=== PATIENT | female | born 1940 | race Caucasian/White ===

== ENCOUNTER 2016-12-22 06:34 | Day surgery (SDC) | payer MEDICARE, OTHER ==
--- NOTE | 2016-12-21 09:32 | NUR ---
NN PT STATES THAT ORIGINALLY DR. MAHONEY OFFICE HAD TALKED TO HER ABOUT STOPPING HER BRIL[place]TA BUT THEN HOSSEIN FROM DR. MAHONEY OFFICE CALLED HER BACK AND TOLD HER NOT TO STOP HER BR[place]TA BECAUSE OF HER INCREASED RISK FOR HEART ATTACK AND THAT FACT THAT SHE HAD JUST HAD 2 IN MARCH OF 2016.
[~2016-12-22] VITALS: Ht 152.4 cm; Wt 66.5 kg
[~2016-12-22 06:34] MED LIST: ASPI81TA2 PO; ATOR20TA59 PO; BETH25TA PO; CA C1TAB81 PO; LEVO25TA51 PO; NITR0.4T PO; ONDA-55 PO; OXYC1TAB11 PO; PANT40TA27 PO; POLY17PO18 PO; TICA90TA PO
[2016-12-22 06:35] VITALS: Ht 152.4 cm; Wt 66.5 kg
--- OUTSIDE RECORDS SUMMARY | 2016-12-22 06:39 | XMS REPORT | Continuity of Care Document ---
Author Author [facility] Organization [facility] Address Unknown Phone Unavailable Allergies Active Description Code Type Severity Reaction Onset Reported/Identified Relationship to Patient Clinical Status Yes phenytoin phenytoin Drug Allergy Moderate HIVES 10/10/2014 Yes codeine codeine Drug Allergy Unknown VOMITING 10/10/2014 Yes orange orange Drug Allergy Severe RASH-HIVES 04/19/2016 Medications Problems Date Dx Coded Attending Type Code Diagnosis Diagnosed By 11/04/2014 Sukhjinder Melchor MD 241.0 NONTOX UNINODULAR GOITER 11/04/2014 Sukhjinder Melchor MD 338.29 OTHER CHRONIC PAIN 11/04/2014 Sukhjinder Melchor MD 389.9 HEARING LOSS NOS 11/04/2014 Sukhjinder Melchor MD 401.9 HYPERTENSION NOS 11/04/2014 Sukhjinder Melchor MD 530.81 ESOPHAGEAL REFLUX 11/04/2014 Sukhjinder Melchor MD 553.3 DIAPHRAGMATIC HERNIA 11/04/2014 Sukhjinder Melchor MD 716.90 ARTHROPATHY NOS-UNSPEC 11/04/2014 Sukhjinder Melchor MD 789.00 ABDOMINAL PAIN, UNSPECIFIED SITE 11/04/2014 Sukhjinder Melchor MD V12.54 PERSONAL HX OF TIA, CEREBRAL INFARCTION W/ OUT RES 11/04/2014 Sukhjinder Melchor MD V15.09 ALLERGY, OTH THAN TO MEDICINAL AGENTS NEC 04/07/2016 Maninder MARTINES, [place] [facility] F E03.9 HYPOTHYROIDISM, UNSPECIFIED 04/07/2016 Maninder MARTINES, [place] H F E11.9 TYPE 2 DIABETES MELLITUS WITHOUT COMPLICATIONS 04/07/2016 Maninder MARTINES, [place] H F E78.5 HYPERLIPIDEMIA, UNSPECIFIED 04/07/2016 Maninder MARTINES, [place] H F E87.6 HYPOKALEMIA 04/07/2016 Maninder MARTINES [place] H F F17.200 NICOTINE DEPENDENCE, UNSPECIFIED, UNCOMPLICATED 04/07/2016 Maninder MARTINES [place] H F I10 ESSENTIAL (PRIMARY) HYPERTENSION 04/07/2016 Magdy Dickens MD I21.29 STEMI INVOLVING OTH SITES 04/07/2016 Magdy Dickens MD J96.01 ACUTE RESPIRATORY FAILURE WITH HYPOXIA 04/07/2016 Magdy Dickens MD R11.0 NAUSEA 04/07/2016 Magdy Dickens MD R57.0 CARDIOGENIC SHOCK Procedures Code Description Performed By Performed On 17.42 LAPAROSCOPIC ROBOTIC ASSISTED PROCEDURE Sukhjinder Melchor MD 11/04/2014 44.67 LAP PROCS FOR CREATION OF ESOPHAGOGASTRIC SPHINCT Sukhjinder Melchor MD 11/04/2014 53.71 LAPAROSCOPIC REPAIR OF DIAPHRAGMATIC HRN, ABDOMINA Sukhjinder Melchor MD 11/04/2014 [id number] DILATION OF 1 COR ART WITH DRUG-ELUT INTRALUM, PER Maninder MARTINES, [facility] 04/07/2016 [id number] MEASURE OF CARDIAC SAMPL PRESSURE, L HEART, PERC Maninder MARTINES [facility] 04/07/2016 [id number] ASSIST WITH CARDIAC OUTPUT USING BALLOON PUMP, CON Maninder MARTINES [facility] 04/07/2016 [id number] FLUOROSCOPY OF MULT COR ART USING L OSM CONTRAST Maninder MARTINES [facility] 04/07/2016 [id number] FLUOROSCOPY OF LEFT HEART USING LOW OSMOLAR CONTRA Maninder MARTINES [facility] 04/07/2016 Results Test Result Range CBC W/DIFF - 07/06/12 15:40 BASOPHIL # 0.1 k/cumm 0.0-0.2 BASOPHIL % 1 % 0-1 EOSINOPHIL # 0.1 k/cumm 0.1-0.5 EOSINOPHIL % 2 % 2-4 GRANULOCYTE # 5.3 k/cumm 2.0-9.0 GRANULOCYTE % 56 % 50-75 LYMPHOCYTE # 3.0 k/cumm 1.0-4.0 LYMPHOCYTE % 31 % 20-30 MEAN CELL HGB 29.7 pg 27.0-33.0 MEAN CELL HGB CONCENTRATION 33.8 g/dl 32.0-36.0 MEAN CELL VOLUME 88.0 fl 80.0-100.0 MONOCYTE # 1.0 k/cumm 0.1-1.0 MONOCYTE % 11 % 4-6 RED BLOOD CELL 5.01 m/cumm 4.00-6.00 RED CELL DISTRIBUTION WIDTH 13.5 % 11.0- 15.6 WHITE BLOOD CELL 9.5 k/cumm 5.0-10.0 HEMOGLOBIN 14.9 gm/dL 12.0-16.0 HEMATOCRIT 44.1 % 37.0-47.0 PLATELET COUNT 300 k/cumm 150-450 PROTHROMBIN TIME WITH INR - 07/06/12 15:40 INTERNATIONAL NORMAL RATIO 0.9 0.9-1.1 PROTHROMBIN TIME 9.3 sec 9.3-12.2 HEPATIC FUNCTION PANEL - 07/06/12 15:40 BILI UNCONJUGATED 0.1 mg/dL 0.0-0.7 AST/SGOT 23 Units/L 10-37 ALT/SGPT 25 Units/L < 66 TOTAL PROTEIN 7.7 gm/dL 6.4-8.2 ALBUMIN 3.4 gm/dL 3.4-5.0 BILI TOTAL 0.2 mg/dL 0.0-1.0 ALKALINE PHOSPHATASE TOTAL 118 Units/L 50 -136 BILI CONJUGATED 0.1 mg/dL 0.0-0.3 [facility] PANEL, [facility] - 07/06/12 15:40 POTASSIUM 4.0 mmol/L 3.5-5.3 EST GFR (MDRD) > 60 mL/min > 59 ANION GAP 11 mmol/L 5-15 EST CrCl (CG) 60 mL/min > 59 GLUCOSE 100 mg/dL 70-99 CALCIUM 8.9 mg/dL 8.5-10.1 BLOOD UREA NITROGEN 9 mg/dL 7-20 CREATININE 0.7 mg/dL 0.6-1.0 SODIUM 138 mmol/L 135-148 CHLORIDE 103 mmol/L 98-110 AST/SGOT 27 Units/L 10-37 ALT/SGPT 27 Units/L < 66 CARBON DIOXIDE 24 mmol/L 21-32 TOTAL PROTEIN 7.6 gm/dL 6.4-8.2 ALBUMIN 3.4 gm/dL 3.4-5.0 BILI TOTAL 0.1 mg/dL 0.0-1.0 ALKALINE PHOSPHATASE TOTAL 120 Units/L 50 -136 HEMOGLOBIN A1C - 07/06/12 15:40 HEMOGLOBIN A1C 6.4 % < 5.7 CHEM/HEM PROFILE-BEDSIDE - 07/06/12 16:08 POTASSIUM 3.9 mmol/L 3.5-5.3 METHOD Bedside ANION GAP 18 mmol/L 10-20 METHOD Bedside GLUCOSE 103 mg/dL 70-99 BLOOD UREA NITROGEN 8 mg/dL 7-20 CREATININE 0.6 mg/dL 0.6-1.0 HEMOGLOBIN 14.6 gm/dL 12.0-16.0 HEMATOCRIT 43.0 % 37.0-47.0 SODIUM 140 mmol/L 135-148 CHLORIDE 104 mmol/L 98-110 CARBON DIOXIDE 23 mmol/L 21-32 CALCIUM IONIZED 4.5 mg/dL 4.5-5.3 URINALYSIS WITH MICROSCOPIC - 07/06/12 16:10 UA LEUKOCYTE ESTERASE DIPSTICK NEGATIVE NEGATIVE UA NITRITE DIPSTICK NEGATIVE NEGATIVE UA PROTEIN DIPSTICK NEGATIVE NEGATIVE UA GLUCOSE DIPSTICK NEGATIVE NEGATIVE UA KETONE DIPSTICK NEGATIVE NEGATIVE UA UROBILINOGEN DIPSTICK NORMAL NORMAL UA BILIRUBIN DIPSTICK NEGATIVE NEGATIVE UA BLOOD DIPSTICK NEGATIVE NEGATIVE UA BACTERIA 2+ NEGATIVE UA EPITHELIAL CELLS 4+ epi/hpf 0 - 1+ UA RBC 0-3 rbc/hpf 0 - 3 UA VOLUME FOR EXAM 12.0 mL (12mL STD) UA WBC 0-1 wbc/hpf 0 - 5 UA SPECIFIC GRAVITY 1.007 1.015-1.025 UR PH 6.0 5.0-7.0 TROPONIN I BEDSIDE - 07/06/12 16:16 METHOD Bedside TROPONIN I < 0.04 ng/mL < 0.11 LIPID PANEL - 07/07/12 06:08 CHOLESTEROL/HDL RATIO 5.0 < 5.0 LDL CHOLESTEROL 93 mg/dL < 100 VLDL CHOLESTEROL 54 mg/dL < 30 TRIGLYCERIDES 270 mg/dL < 150 CHOLESTEROL 184 mg/dL < 200 HDL CHOLESTEROL 37 mg/dL > 39 GLUCOSE (POC) - 07/07/12 10:18 GLUCOSE (POC) 111 mg/dL 70-99 HEMOGLOBIN - 11/02/14 11:43 MEAN CELL VOLUME 72.4 fl 80.0-100.0 HEMOGLOBIN 9.6 gm/dL 12.0-16.0 METABOLIC PANEL, BASIC - 11/02/14 11:43 POTASSIUM 4.0 mmol/L 3.5-5.3 EST GFR (MDRD) > 60 mL/min > 59 ANION GAP 9 mmol/L 5-15 EST CrCl (CG) 46 mL/min > 59 GLUCOSE 105 mg/dL 70-99 CALCIUM 9.1 mg/dL 8.5-10.1 BLOOD UREA NITROGEN 10 mg/dL 7-20 CREATININE 0.9 mg/dL 0.6-1.0 SODIUM 141 mmol/L 135-148 CHLORIDE 105 mmol/L 98-110 CARBON DIOXIDE 27 mmol/L 21-32 GLUCOSE (POC) - 11/02/14 11:44 GLUCOSE (POC) 107 mg/dL 70-99 GLUCOSE (POC) - 11/02/14 14:51 GLUCOSE (POC) 190 mg/dL 70-99 GLUCOSE (POC) - 11/02/14 15:58 GLUCOSE (POC) 178 mg/dL 70-99 GLUCOSE (POC) - 11/02/14 18:57 GLUCOSE (POC) 156 mg/dL -99 GLUCOSE (POC) - 11/02/14 21:54 GLUCOSE (POC) 153 mg/dL -99 GLUCOSE (POC) - 11/02/14 21:56 GLUCOSE (POC) 146 mg/dL -99 GLUCOSE (POC) - 11/03/14 05:18 GLUCOSE (POC) 107 mg/dL 70-99 CBC - 11/03/14 05:45 MEAN CELL HGB 20.9 pg 27.0-33.0 MEAN CELL HGB CONCENTRATION 28.8 g/dL 32.0-37.0 MEAN CELL VOLUME 72.7 fl 80.0-100.0 RED BLOOD CELL 4.25 m/cumm 4.00-6.00 RED CELL DISTRIBUTION WIDTH 18.5 % 11.0- 15.6 WHITE BLOOD CELL 12.2 k/cumm 5.0-10.0 HEMOGLOBIN 8.9 gm/dL 12.0-16.0 HEMATOCRIT 30.9 % 37.0-47.0 PLATELET COUNT 351 k/cumm 150-400 RENAL FUNCTION PANEL - 11/03/14 05:45 POTASSIUM 4.2 mmol/L 3.5-5.3 EST GFR (MDRD) > 60 mL/min > 59 ANION GAP 9 mmol/L 5-15 EST CrCl (CG) 46 mL/min > 59 GLUCOSE 112 mg/dL 70-99 CALCIUM 8.3 mg/dL 8.5-10.1 BLOOD UREA NITROGEN 11 mg/dL 7-20 CREATININE 0.9 mg/dL 0.6-1.0 SODIUM 142 mmol/L 135-148 CHLORIDE 107 mmol/L 98-110 CARBON DIOXIDE 26 mmol/L ALBUMIN 2.8 gm/dL 3.4-5.0 PHOSPHORUS 4.8 mg/dL 2.5-4.9 MAGNESIUM - 11/03/14 05:45 MAGNESIUM 1.8 mg/dL 1.8-2.4 GLUCOSE (POC) - 11/03/14 11:52 GLUCOSE (POC) 93 mg/dL 70-99 GLUCOSE (POC) - 11/03/14 22:33 GLUCOSE (POC) 116 mg/dL 70-99 GLUCOSE (POC) - 11/04/14 05:45 GLUCOSE (POC) 198 mg/dL 70-99 RENAL FUNCTION PANEL - 11/04/14 06:27 POTASSIUM 3.7 mmol/L 3.5-5.3 EST GFR (MDRD) 47 mL/min > 59 ANION GAP 7 mmol/L 02-01 EST CrCl (CG) 36 mL/min > 59 GLUCOSE 150 mg/dL 70-99 CALCIUM 8.1 mg/dL 8.5-10.1 BLOOD UREA NITROGEN 10 mg/dL 7-20 CREATININE 1.2 mg/dL 0.6-1.0 SODIUM 141 mmol/L 135-148 CHLORIDE 107 mmol/L 98-110 CARBON DIOXIDE 27 mmol/L 21-32 ALBUMIN 2.8 gm/dL 3.4-5.0 PHOSPHORUS 3.8 mg/dL 2.5-4.9 MAGNESIUM - 11/04/14 06:27 MAGNESIUM 1.8 mg/dL 1.8-2.4 GLUCOSE (POC) - 11/04/14 20:45 GLUCOSE (POC) 101 mg/dL - GLUCOSE (POC) - 11/05/14 05:21 GLUCOSE (POC) 106 mg/dL 70-99 RENAL FUNCTION PANEL - 11/05/14 05:28 POTASSIUM 3.7 mmol/L 3.5-5.3 EST GFR (MDRD) > 60 mL/min > 59 ANION GAP 7 mmol/L 02-01 EST CrCl (CG) 47 mL/min > 59 GLUCOSE 93 mg/dL 70-99 CALCIUM 7.9 mg/dL 8.5-10.1 BLOOD UREA NITROGEN 8 mg/dL 7-20 CREATININE 0.9 mg/dL 0.6-1.0 SODIUM 138 mmol/L 135-148 CHLORIDE 104 mmol/L 98-110 CARBON DIOXIDE 27 mmol/L 21-32 ALBUMIN 2.8 gm/dL 3.4-5.0 PHOSPHORUS 2.6 mg/dL 2.5-4.9 MAGNESIUM - 11/05/14 05:28 MAGNESIUM 1.5 mg/dL 1.8-2.4 CBC - 11/06/14 05:32 MEAN CELL HGB 21.5 pg 27.0-33.0 MEAN CELL HGB CONCENTRATION 29.0 g/dL 32.0-37.0 MEAN CELL VOLUME 74.3 fl 80.0-100.0 RED BLOOD CELL 3.39 m/cumm 4.00-6.00 RED CELL DISTRIBUTION WIDTH 19.0 % 11.0- 15.6 WHITE BLOOD CELL 5.5 k/cumm 5.0-10.0 HEMOGLOBIN 7.3 gm/dL 12.0-16.0 HEMATOCRIT 25.2 % 37.0-47.0 PLATELET COUNT 220 k/cumm 150-400 RENAL FUNCTION PANEL - 11/06/14 05:32 POTASSIUM 3.6 mmol/L 3.5-5.3 EST GFR (MDRD) > 60 mL/min > 59 ANION GAP 7 mmol/L -15 EST CrCl (CG) > 60 mL/min > 59 GLUCOSE 116 mg/dL 70-99 CALCIUM 8.1 mg/dL 8.5-10.1 BLOOD UREA NITROGEN 3 mg/dL 7-20 CREATININE 0.6 mg/dL 0.6-1.0 SODIUM 144 mmol/L 135-148 CHLORIDE 108 mmol/L 98-110 CARBON DIOXIDE 29 mmol/L 21-32 ALBUMIN 2.7 gm/dL 3.4-5.0 PHOSPHORUS 2.9 mg/dL 2.5-4.9 MAGNESIUM - 11/06/14 05:32 MAGNESIUM 1.5 mg/dL 1.8-2.4 HEMOGLOBIN - 11/07/14 05:11 MEAN CELL VOLUME 74.4 fl 80.0-100.0 HEMOGLOBIN 7.9 gm/dL 12.0-16.0 RENAL FUNCTION PANEL - 11/07/14 05:11 POTASSIUM 3.4 mmol/L 3.5-5.3 EST GFR (MDRD) > 60 mL/min > 59 ANION GAP 6 mmol/L -15 EST CrCl (CG) > 60 mL/min > 59 GLUCOSE 98 mg/dL 70-99 CALCIUM 8.3 mg/dL 8.5-10.1 BLOOD UREA NITROGEN 3 mg/dL 7-20 CREATININE 0.7 mg/dL 0.6-1.0 SODIUM 142 mmol/L 135-148 CHLORIDE 104 mmol/L 98-110 CARBON DIOXIDE 32 mmol/L 21-32 ALBUMIN 2.7 gm/dL 3.4-5.0 PHOSPHORUS 3.0 mg/dL 2.5-4.9 MAGNESIUM - 11/07/14 05:11 MAGNESIUM 1.6 mg/dL 1.8-2.4 ARTERIAL BLOOD GAS - 04/08/16 00:16 ABG BASE EXCESS -8.0 meq/L -3.0-3.0 ABG BICARBONATE 18.5 meq/L 23.0-28.0 ABG PCO2 41 mm Hg 34-45 ABG PH 7.27 7.35-7.45 ABG PO2 79 mm Hg 75-100 ABG O2 SATURATION 93 % 93-100 CBC - 04/08/16 05:21 MEAN CELL HGB 29.6 pg 27.0-33.0 MEAN CELL HGB CONCENTRATION 32.8 g/dL 32.0-37.0 MEAN CELL VOLUME 90.4 fl 80.0-100.0 RED BLOOD CELL 4.56 m/cumm 4.00-6.00 RED CELL DISTRIBUTION WIDTH 14.3 % 11.0- 15.6 WHITE BLOOD CELL 16.1 k/cumm 5.0-10.0 HEMOGLOBIN 13.5 gm/dL 12.0-16.0 HEMATOCRIT 41.2 % 37.0-47.0 PLATELET COUNT 239 k/cumm 150-400 METABOLIC PANEL, COMPREHN - 04/08/16 05:21 POTASSIUM 5.4 mmol/L 3.5-5.3 EST GFR (MDRD) 44 mL/min > 59 ANION GAP 10 mmol/L 5-15 EST CrCl (CG) 28 mL/min > 59 GLUCOSE 154 mg/dL 70-99 CALCIUM 8.1 mg/dL 8.5-10.1 BLOOD UREA NITROGEN 22 mg/dL 7-20 CREATININE 1.2 mg/dL 0.6-1.0 SODIUM 142 mmol/L 135-148 CHLORIDE 111 mmol/L 98-110 AST/SGOT 412 Units/L 10-37 ALT/SGPT 84 Units/L < 66 CARBON DIOXIDE 21 mmol/L 21-32 TOTAL PROTEIN 6.3 gm/dL 6.4-8.2 ALBUMIN 2.9 gm/dL 3.4-5.0 BILI TOTAL 0.3 mg/dL 0.0-1.0 ALKALINE PHOSPHATASE TOTAL 74 IU/L 45- 117 CK MB - 04/08/16 05:21 CK MB 435.7 ng/mL < 4.0 LIPID PANEL - 04/08/16 05:21 CHOLESTEROL/HDL RATIO 5.2 < 5.0 LDL CHOLESTEROL 105 mg/dL < 100 VLDL CHOLESTEROL 49 mg/dL < 30 TRIGLYCERIDES 247 mg/dL < 150 CHOLESTEROL 191 mg/dL < 200 HDL CHOLESTEROL 37 mg/dL > 39 TROPONIN I - 04/08/16 05:21 TROPONIN I 141.00 ng/mL < 0.07 CBC - 04/12/16 07:00 MEAN CELL HGB 29.6 pg 27.0-33.0 MEAN CELL HGB CONCENTRATION 32.6 g/dL 32.0-37.0 MEAN CELL VOLUME 90.8 fl 80.0-100.0 RED BLOOD CELL 3.71 m/cumm 4.00-6.00 RED CELL DISTRIBUTION WIDTH 14.2 % 11.0- 15.6 WHITE BLOOD CELL 10.5 k/cumm 5.0-10.0 HEMOGLOBIN 11.0 gm/dL 12.0-16.0 HEMATOCRIT 33.7 % 37.0-47.0 PLATELET COUNT 222 k/cumm 150-400 METABOLIC PANEL, BASIC - 04/13/16 08:00 POTASSIUM 2.8 mmol/L 3.5-5.3 EST GFR (MDRD) > 60 mL/min > 59 ANION GAP 2 mmol/L 5-15 EST CrCl (CG) > 60 mL/min > 59 GLUCOSE 188 mg/dL 70-99 CALCIUM 8.8 mg/dL 8.5-10.1 BLOOD UREA NITROGEN 11 mg/dL 7-20 CREATININE 0.7 mg/dL 0.6-1.0 SODIUM 132 mmol/L 135-148 CHLORIDE 89 mmol/L 98-110 CARBON DIOXIDE 41 mmol/L 21-32 MAGNESIUM - 04/13/16 08:00 MAGNESIUM 2.1 mg/dL 1.8-2.4 METABOLIC PANEL, BASIC - 04/14/16 05:08 POTASSIUM 3.2 mmol/L 3.5-5.3 EST GFR (MDRD) > 60 mL/min > 59 ANION GAP 6 mmol/L 5-15 EST CrCl (CG) 50 mL/min > 59 GLUCOSE 112 mg/dL 70-99 CALCIUM 9.2 mg/dL 8.5-10.1 BLOOD UREA NITROGEN 16 mg/dL 7-20 CREATININE 0.9 mg/dL 0.6-1.0 SODIUM 139 mmol/L 135-148 CHLORIDE 94 mmol/L 98-110 CARBON DIOXIDE 39 mmol/L 21-32 ARTERIAL BLOOD GAS - 04/14/16 05:20 ABG BASE EXCESS 14.6 meq/L -3.0-3.0 ABG BICARBONATE 39.2 meq/L 23.0-28.0 ABG PCO2 49 mm Hg 34-45 ABG PH 7.53 7.35-7.45 ABG PO2 60 mm Hg 75-100 ABG O2 SATURATION 91 % 93-100 CBC - 04/15/16 05:46 MEAN CELL HGB 29.3 pg 27.0-33.0 MEAN CELL HGB CONCENTRATION 32.2 g/dL 32.0-37.0 MEAN CELL VOLUME 90.9 fl 80.0-100.0 RED BLOOD CELL 4.27 m/cumm 4.00-6.00 RED CELL DISTRIBUTION WIDTH 14.5 % 11.0- 15.6 WHITE BLOOD CELL 11.2 k/cumm 5.0-10.0 HEMOGLOBIN 12.5 gm/dL 12.0-16.0 HEMATOCRIT 38.8 % 37.0-47.0 PLATELET COUNT 335 k/cumm 150-400 HEPATIC FUNCTION PANEL - 04/15/16 05:46 BILI UNCONJUGATED 0.5 mg/dL 0.0-0.7 AST/SGOT 39 Units/L 10-37 ALT/SGPT 57 Units/L < 66 TOTAL PROTEIN 6.8 gm/dL 6.4-8.2 ALBUMIN 2.6 gm/dL 3.4-5.0 BILI TOTAL 0.6 mg/dL 0.0-1.0 ALKALINE PHOSPHATASE TOTAL 94 IU/L 45- 117 BILI CONJUGATED 0.1 mg/dL 0.0-0.3 ARTERIAL BLOOD GAS - 04/15/16 06:08 ABG BASE EXCESS 2.8 meq/L -3.0-3.0 ABG BICARBONATE 26.3 meq/L 23.0-28.0 ABG PCO2 37 mm Hg 34-45 ABG PH 7.47 7.35-7.45 ABG PO2 95 mm Hg 75-100 ABG O2 SATURATION 98 % 93-100 CBC - 04/15/16 16:36 MEAN CELL HGB 29.1 pg 27.0-33.0 MEAN CELL HGB CONCENTRATION 31.8 g/dL 32.0-37.0 MEAN CELL VOLUME 91.6 fl 80.0-100.0 RED BLOOD CELL 4.40 m/cumm 4.00-6.00 RED CELL DISTRIBUTION WIDTH 14.7 % 11.0- 15.6 WHITE BLOOD CELL 10.4 k/cumm 5.0-10.0 HEMOGLOBIN 12.8 gm/dL 12.0-16.0 HEMATOCRIT 40.3 % 37.0-47.0 PLATELET COUNT 365 k/cumm 150-400 PROTHROMBIN TIME WITH INR - 04/15/16 16:37 INTERNATIONAL NORMAL RATIO 1.0 0.9-1.1 PROTHROMBIN TIME 11.5 sec 10.0-12.9 PARTIAL THROMBOPLASTIN TIME - 04/15/16 16:37 PARTIAL THROMBOPLASTIN TIME 38 sec 23-39 METABOLIC PANEL, BASIC - 04/15/16 16:37 POTASSIUM 3.6 mmol/L 3.5-5.3 EST GFR (MDRD) 49 mL/min > 59 ANION GAP 10 mmol/L 5-15 EST CrCl (CG) 41 mL/min > 59 GLUCOSE 179 mg/dL 70-99 CALCIUM 9.1 mg/dL 8.5-10.1 BLOOD UREA NITROGEN 20 mg/dL 7-20 CREATININE 1.1 mg/dL 0.6-1.0 SODIUM 137 mmol/L 135-148 CHLORIDE 99 mmol/L 98-110 CARBON DIOXIDE 28 mmol/L 21-32 CBC - 04/16/16 05:13 MEAN CELL HGB 29.2 pg 27.0-33.0 MEAN CELL HGB CONCENTRATION 32.1 g/dL 32.0-37.0 MEAN CELL VOLUME 91.1 fl 80.0-100.0 RED BLOOD CELL 4.04 m/cumm 4.00-6.00 RED CELL DISTRIBUTION WIDTH 14.5 % 11.0- 15.6 WHITE BLOOD CELL 11.2 k/cumm 5.0-10.0 HEMOGLOBIN 11.8 gm/dL 12.0-16.0 HEMATOCRIT 36.8 % 37.0-47.0 PLATELET COUNT 358 k/cumm 150-400 PROTHROMBIN TIME WITH INR - 04/16/16 05:13 INTERNATIONAL NORMAL RATIO 1.0 0.9-1.1 PROTHROMBIN TIME 10.8 sec 10.0-12.9 PARTIAL THROMBOPLASTIN TIME - 04/16/16 05:13 PARTIAL THROMBOPLASTIN TIME 29 sec 23-39 METABOLIC PANEL, COMPREHN - 04/16/16 05:13 POTASSIUM 3.6 mmol/L 3.5-5.3 EST GFR (MDRD) > 60 mL/min > 59 ANION GAP 9 mmol/L 5-15 EST CrCl (CG) 50 mL/min > 59 GLUCOSE 106 mg/dL 70-99 CALCIUM 8.9 mg/dL 8.5-10.1 BLOOD UREA NITROGEN 18 mg/dL 7-20 CREATININE 0.9 mg/dL 0.6-1.0 SODIUM 140 mmol/L 135-148 CHLORIDE 104 mmol/L 98-110 AST/SGOT 25 Units/L 10-37 ALT/SGPT 46 Units/L < 66 CARBON DIOXIDE 27 mmol/L 21-32 TOTAL PROTEIN 6.5 gm/dL 6.4-8.2 ALBUMIN 2.5 gm/dL 3.4-5.0 BILI TOTAL 0.5 mg/dL 0.0-1.0 ALKALINE PHOSPHATASE TOTAL 93 IU/L 45- 117 TROPONIN I - 04/16/16 05:13 TROPONIN I 1.38 ng/mL < 0.07 CBC - 04/17/16 08:30 MEAN CELL HGB 28.9 pg 27.0-33.0 MEAN CELL HGB CONCENTRATION 31.9 g/dL 32.0-37.0 MEAN CELL VOLUME 90.5 fl 80.0-100.0 RED BLOOD CELL 4.40 m/cumm 4.00-6.00 RED CELL DISTRIBUTION WIDTH 14.7 % 11.0- 15.6 WHITE BLOOD CELL 11.8 k/cumm 5.0-10.0 HEMOGLOBIN 12.7 gm/dL 12.0-16.0 HEMATOCRIT 39.8 % 37.0-47.0 PLATELET COUNT 398 k/cumm 150-400 METABOLIC PANEL, BASIC - 04/17/16 08:30 POTASSIUM 3.8 mmol/L 3.5-5.3 EST GFR (MDRD) > 60 mL/min > 59 ANION GAP 8 mmol/L 5-15 EST CrCl (CG) 50 mL/min > 59 GLUCOSE 151 mg/dL 70-99 CALCIUM 8.9 mg/dL 8.5-10.1 BLOOD UREA NITROGEN 17 mg/dL 7-20 CREATININE 0.9 mg/dL 0.6-1.0 SODIUM 140 mmol/L 135-148 CHLORIDE 108 mmol/L 98-110 CARBON DIOXIDE 24 mmol/L 21-32 METABOLIC PANEL, BASIC - 04/18/16 05:37 POTASSIUM 3.8 mmol/L 3.5-5.3 EST GFR (MDRD) > 60 mL/min > 59 ANION GAP 6 mmol/L 5-15 EST CrCl (CG) 50 mL/min > 59 GLUCOSE 98 mg/dL 70-99 CALCIUM 8.5 mg/dL 8.5-10.1 BLOOD UREA NITROGEN 20 mg/dL 7-20 CREATININE 0.9 mg/dL 0.6-1.0 SODIUM 138 mmol/L 135-148 CHLORIDE 105 mmol/L 98-110 CARBON DIOXIDE 27 mmol/L 21-32 MAGNESIUM - 04/18/16 05:37 MAGNESIUM 2.0 mg/dL 1.8-2.4 CBC - 04/20/16 05:15 MEAN CELL HGB 28.8 pg 27.0-33.0 MEAN CELL HGB CONCENTRATION 31.9 g/dL 32.0-37.0 MEAN CELL VOLUME 90.3 fl 80.0-100.0 RED BLOOD CELL 4.00 m/cumm 4.00-6.00 RED CELL DISTRIBUTION WIDTH 14.8 % 11.0- 15.6 WHITE BLOOD CELL 10.2 k/cumm 5.0-10.0 HEMOGLOBIN 11.5 gm/dL 12.0-16.0 HEMATOCRIT 36.1 % 37.0-47.0 PLATELET COUNT 415 k/cumm 150-400 Encounters ACCT No. Visit Date/Time Discharge Status Pt. Type Provider Facility Loc./Unit Complaint [id number] 11/13/2013 14:43:00 11/13/2013 23 :59:59 CLS Outpatient [id number] 10/23/2013 15:17:00 10/23/2013 23 :59:59 CLS Outpatient [id number] 10/20/2013 14:41:00 10/20/2013 23 :59:59 CLS Outpatient [id number] 07/18/2013 09:59:00 07/18/2013 23 :59:59 CLS Outpatient
--- OUTSIDE RECORDS SUMMARY | 2016-12-22 06:39 | XMS REPORT ---
Author Author Magdy Dickens Organization [facility] Address [address] [place] [address] Care Team Providers Care Core Stacker Name Role Phone Magdy Dickens Unavailable [phone] PROBLEMS Type Condition ICD9-CM Code BXP25-XL Code Onset Dates Condition Status SNOMED Code Problem Atherosclerotic heart disease of [place] coronary artery without angina pectoris I25.10 Active 370238884161870 Problem Mixed hyperlipidemia E78.2 Active 117393463 Problem Plavix resistance Z78.9 Active Problem Dyslipidemia E78.5 Active 736440408 Problem STEMI (ST elevation myocardial infarction) I21.3 Active 344188345 Problem Cardiomyopathy I42.9 Active 51127072 ALLERGIES Unknown Allergies SOCIAL HISTORY No smoking Hx information available PLAN OF CARE VITAL SIGNS MEDICATIONS Unknown Medications RESULTS No Results PROCEDURES No Known procedures IMMUNIZATIONS No Known Immunizations
--- OUTSIDE RECORDS SUMMARY | 2016-12-22 06:39 | XMS REPORT | Referral Summary ---
Author Author [facility] Organization [facility] Address Unknown Phone Unavailable Care Team Providers Care Crester Name Role Phone Mulugeta Lund Primary Care Physician [phone] Encounter VC Date(s): 06/29/16 - 06/29/16 [facility], [facility] [address], [facility] [address] [place], [place] [address] Discharge Diagnosis: Hot flashes Discharge Diagnosis: Stented coronary artery Discharge Disposition: 01-Home or Self Care Attending Physician: Mikal Lund MD Vital Signs Most recent to 1 oldest [Reference Range]: Blood Pressure 134/70 mmHg [90-140/60-90 mmHg] (06/29/16 1:22 PM) Problem List Condition Effective Dates Status Health Status Informant Abdominal 2008 Active pain(Confirmed)1 Acute Active pain(Confirmed) Hayfever(Confirmed) Active Arthritis(Confirmed) Active At risk for Active injury(Confirmed)2 At risk of pressure Active sore(Confirmed) Basal cell Resolved carcinoma(Confirmed) Bronchitis(Confirmed Active ) CVA (cerebral Active vascular accident)(Confirmed) Communication 2010 Active problem(Confirmed)3 Dehydration(Confirme 2008 Active d)4 Allergy to Active environmental factors(Confirmed) Sun exposure, Active moderate(Confirmed) Hearing Active loss(Confirmed) Hypertension(Confirm Active ed) Prediabetes(Confirme Active d) Head Active trauma(Confirmed) Nausea and 2009 Active vomiting(Confirmed)5 Non-toxic uninodular Active goiter (disorder)(Confirmed ) Numbness - 2012 Active RUE(Confirmed)6 Self -care 04/20/16 Active deficit(Confirmed)7 Skin Resolved cancer(Confirmed)8 Slurred 2011 Active speech(Confirmed)9 Thyroid Active nodule(Confirmed) TIA (transient 2012 Active ischemic attack)(Confirmed)10 Varicella Active zoster(Confirmed) 1Hospitalization 2Problem added automatically by system based on initiation of Risk for Injury Plan of Care 3Hospitalization 4Hospitalization 5Hospitalization 6Hospitalization 7Problem added by Discern Expert 8[facility] 9Hospitalization 10Hospitalization Allergies, Adverse Reactions, Alerts Substance Reaction Severity Status codeine Hives/Skin Rash Active VOMITTING Dilantin Active Oranges Active Medications aspirin 81 mg oral delayed release tablet 81 mg 1 tabs, Oral, Daily, 0 Refill(s) Start Date: 04/23/16 Status: Ordered atorvastatin 20 mg oral tablet 20 mg 1 tabs, Oral, Daily, # 30 tabs, 0 Refill(s) Start Date: 04/23/16 Status: Ordered bethanechol 25 mg oral tablet 25 mg 1 tabs, Oral, QID, # 120 tabs, 0 Refill(s), Pharmacy: [facility], 1 tabs Oral QID Start Date: 05/15/16 Status: Ordered Brilinta (ticagrelor) 90 mg oral tablet 90 mg 1 tabs, Oral, BID, # 60 tabs, 0 Refill(s) Start Date: 04/23/16 Stop Date: 05/23/16 Status: Ordered fluticasone 50 mcg/inh nasal spray 100 mcg 2 sprays, Nasal, Daily, # 1 Each, 0 Refill(s) Start Date: 04/23/16 Stop Date: 04/30/16 Status: Ordered LISINOPRIL TABS 40MG See Instructions, TAKE 1 TABLET DAILY, # 100 tabs, eRx: [facility], TAKE 1 TABLET DAILY Start Date: 05/15/16 Status: Ordered nitroglycerin 0.4 mg sublingual tablet 0.4 mg 1 tabs, SubLingual, q5min, Angina/Chest Pain, If chest pain not relieved in 5 minutes after first dose, seek immediate medical attention, # 100 tabs, 0 Refill(s) Start Date: 04/23/16 Status: Ordered Synthroid 25 mcg (0.025 mg) oral tablet 25 mcg 1 tabs, Oral, Daily, # 30 tabs, 0 Refill(s) Start Date: 04/23/16 Status: Ordered Results Chemistry Most recent to 1 oldest [Reference Range]: TSH with Reflex Free 3.19 T4 [0.35-4.94] (06/29/16 2:22 PM) Immunizations Vaccine Date Refusal Reason influenza virus vaccine, inactivated 06/29/16 influenza virus vaccine, live 06/27/13 influenza virus vaccine, live 06/08/11 pneumococcal 13-valent conjugate vaccine 06/29/16 pneumococcal 23-polyvalent vaccine 03/17/10 Procedures Procedure Date Related Diagnosis Body Site Calibration of urethra 08/09/15 Cystoscopy 08/09/15 Urethral dilatation - female 08/09/15 Calibration of urethra 05/22/15 Cystoscopy using panendoscope 05/22/15 Urethral dilatation - female 05/22/15 Laparoscopy, surgical, esophagogastric 11/02/14 fundoplasty (eg, Collin, Toupet procedures) EGD 06/25/14 EKG 02/05/14 Procedure-Cystopanedoscopy 07/03/13 Calibration of urethra 2012 Cystopanendoscopy 2012 Urethral dilatation 2012 Colonoscopy 05/06/11 History of back surgery 09/20/08 History of back surgery - lower back with 2009 titanium pin History of - hysterectomy 09/20/74 Tubal ligation 1970 Adenoidectomy 09/20/68 Social History Social History Type Response Smoking Status Former smoker; Type: Cigarettes; Tobacco use per day: 3 per day; Number of years: 52; Stopped at age: 89 1quit Assessment and Plan Extracted from: Title: Office Visit Note Author: Mikal Lund MD Date: 06/29/16 Assessment/Plan 1.Hot flashes I'm not sure what's causing this, but likely related to the myocardial infarct medication she is using to treatall the sequelae. Reassured her regarding this and advised her to try taking some soy protein. We are not able to use medication and that might mitigate this because of her medications for the coronary artery disease. Ordered: influenza virus vaccine, inactivated, 0.5 mL, IntraMuscular, Once, First Dose: 06/29/16 13:56:00 CDT, Stop Date: 06/29/16 13:56:00 CDT pneumococcal 13-valent conjugate vaccine, 0.5 mL, IntraMuscular, Once, First Dose: 06/29/16 14:00:00 CDT, Stop Date: 06/29/16 14:00:00 CDT Office Visit Level 3 Est 29422 2.Stented coronary artery No change. Ordered: influenza virus vaccine, inactivated, 0.5 mL, IntraMuscular, Once, First Dose: 06/29/16 13:56:00 CDT, Stop Date: 06/29/16 13:56:00 CDT pneumococcal 13-valent conjugate vaccine, 0.5 mL, IntraMuscular, Once, First Dose: 06/29/16 14:00:00 CDT, Stop Date: 06/29/16 14:00:00 CDT Office Visit Level 3 Est [id number]
--- OUTSIDE RECORDS SUMMARY | 2016-12-22 06:40 | XMS REPORT | Referral Summary ---
Author Author [facility] Organization [facility] Address Unknown Phone Unavailable Care Team Providers Care Electrical And Instrumentation Mechanic Name Role Phone Mulugeta Lund Primary Care Physician [phone] Encounter VC Date(s): 11/02/16 - 11/02/16 [facility] [address] [place] [address] JAYDEN Ferraro [id number] Discharge Diagnosis: Difficulty urinating Discharge Disposition: 01-Home or Self Care Attending Physician: Robb Soriano MD Admitting Physician: Robb Soriano MD Vital Signs Most recent to 1 oldest [Reference Range]: Blood Pressure 124/84 mmHg [90-140/60-90 mmHg] (11/02/16 2:11 PM) Problem List Condition Effective Dates Status [...] uninodular Active goiter (disorder)(Confirmed ) Numbness - 2011 - 08/28/14 Resolved RUE(Confirmed)6 Self -care 04/20/16 Active deficit(Confirmed)7 Skin Resolved cancer(Confirmed)8 Slurred 2011 - 08/28/14 Resolved speech(Confirmed)9 Thyroid Active nodule(Confirmed) TIA (transient 2011 Active ischemic attack)(Confirmed)10 Varicella Active zoster(Confirmed) 1Hospitalization [...] oral tablet 25 mg 1 tabs, Oral, TID, X 90 days, # 270 tabs, 1 Refill(s), Pharmacy: [facility], 1 tabs Oral TID,x90 days Start Date: 11/02/16 Stop Date: 05/01/17 Status: Ordered bethanechol 25 mg oral tablet See Instructions, TAKE 1 TABLET FOUR TIMES A DAY, # 120 tabs, eRx: [facility], TAKE 1 TABLET FOUR TIMES A DAY Start Date: 07/06/16 Status: Ordered Brilinta (ticagrelor) 90 mg oral tablet 90 mg 1 tabs, Oral, BID, # 60 tabs, 0 Refill(s) Start Date: 04/23/16 Stop Date: 05/23/16 Status: Ordered fluticasone 50 mcg/inh nasal spray 100 mcg 2 sprays, Nasal, Daily, # 1 Each, 0 Refill(s) Start Date: 04/23/16 Stop Date: 04/30/16 Status: Ordered nitroglycerin 0.4 mg sublingual tablet 0.4 mg 1 tabs, SubLingual, q5min, Angina/Chest Pain, If chest pain not relieved in 5 minutes after first dose, seek immediate medical attention, # 100 tabs, 0 Refill(s) Start Date: 04/23/16 Status: Ordered ondansetron 4 mg oral tablet See Instructions, TAKE ONE TABLET BY MOUTH EVERY 8 HOURS NEEDED FOR NAUSEA AND VOMITING, # 30 tabs, 2 Refill(s), eRx: [facility] #[id number], TAKE ONE TABLET BY MOUTH EVERY 8 HOURS NEEDED FOR NAUSEA AND VOMITING Start Date: 10/15/16 Status: Ordered Percocet 7.5/325 oral tablet 1 tabs, Oral, QID, # 60 tabs, 0 Refill(s) Start Date: 11/02/16 Status: Ordered Synthroid 25 mcg (0.025 mg) oral tablet 25 mcg 1 tabs, Oral, Daily, # 30 tabs, 0 Refill(s) Start Date: 04/23/16 Status: Ordered Results No data available for this section Immunizations Given and Recorded Vaccine Date Status Refusal Reason influenza virus vaccine, inactivated 06/29/16 Given influenza virus vaccine, live 06/27/13 Given influenza virus vaccine, live 06/08/11 Given pneumococcal 13-valent conjugate vaccine 06/29/16 Given pneumococcal 23-polyvalent vaccine 03/17/10 Recorded Procedures Procedure Date Related Diagnosis Body Site Calibration of urethra 08/09/15 Cystoscopy 08/09/15 Urethral dilatation - female 08/09/15 Calibration of urethra 05/22/15 Cystoscopy using panendoscope 05/22/15 Urethral dilatation - female 05/22/15 Laparoscopy, surgical, esophagogastric 11/02/14 fundoplasty (eg, Collin, Toupet procedures) EGD 06/25/14 EKG 02/05/14 Procedure-Cystopanedoscopy 07/03/13 Calibration of urethra 2012 Cystopanendoscopy 2012 Urethral dilatation 2012 Colonoscopy 05/06/11 EGD 05/06/11 snare removal polyp sigmoid colon 05/06/11 History of back surgery 09/20/08 History of back surgery - lower back with 2009 titanium pin History of - hysterectomy 09/20/74 Tubal ligation 1971 Adenoidectomy 09/20/68 Social History Social History Type Response Smoking Status Former smoker; Type: Cigarettes; Tobacco use per day: 3 per day; Number of years: 52; Stopped at age: 89 1quit Assessment and Plan Extracted from: Title: Office Visit Note Author: Robb Soriano MD Date: 11/02/16 Assessment/Plan Difficulty urinating Refill Urecholine Continue with double voiding. I also advised her to use fingers in the vagina to lift the bladder up when she urinates. I will see urinary symptoms could be multifactorialcontributed byurethrostenosis, cystoceleand a weak detrusor. At this point we'll hold off on doing any urethral dilationand will let her recover from her back injury . We'll see her back in 6 months at which time I'll do a urethral dilation.
--- OUTSIDE RECORDS SUMMARY | 2016-12-22 06:40 | XMS REPORT ---
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
--- OUTSIDE RECORDS SUMMARY | 2016-12-22 06:40 | XMS REPORT | Continuity of Care Document ---
Author Author [facility] Organization [facility] Address Unknown Phone Unavailable Support Name Relationship Address Phone OSCAR RODRIGUEZ MD Caregiver [address] [place] [address] Unavailable OSCAR RODRIGUEZ MD Caregiver [address] [place] [address] Unavailable JAKUB LUND Caregiver [address] [place] [address] Unavailable MARYAM PALOMINO Next Of Kin [address] [place], [place] [id number] Insurance Providers Guarantor Odalis Oswald Address [address] [place] [address] Email [email or web address] Medicare Policy Number [id number] Subscriber's Name Odalis Oswald Relationship 18 Self Effective Date 07 Payer [facility] Medicare [facility] Policy Number [id number] Subscriber's Name Nicolás Oswald Relationship 01 Spouse Advance Directives Directive Response Recorded Date/Time Ordered Resuscitation Status Full Code 08/29/16 12:12pm DPOA for Healthcare Only Y Maryam Devine [place] 08/29/16 12:50pm Living Will Y standard living will, doesn't want to be a vegetable 08/29/16 11:44am Problems Active Problems Medical Problem Onset Date Status Acute bleeding Unknown Acute Allergic rhinitis Unknown Chronic Anemia Unknown Acute Cervical stenosis of spine Unknown Acute Compression fracture Unknown Acute Constipation Unknown Chronic Coronary artery disease Unknown Chronic Dehydration Unknown Resolved Fall from standing Unknown Acute Fibromyalgia Unknown Chronic Gait instability Unknown Acute Gastric ulcer with hemorrhage Unknown Acute HFrEF (heart failure with reduced ejection fraction) Unknown Chronic Hx of skin malignancy Unknown Resolved Hypertension Unknown Chronic Hypothyroidism Unknown Chronic Hypoxia Unknown Acute Left arm pain Unknown Acute Low back pain Unknown Acute Nausea & vomiting Unknown Acute OA (osteoarthritis) Unknown Chronic Plavix resistance Unknown Chronic Right flank pain Unknown Acute Syncope Unknown Acute Urethra cancer Unknown Chronic Past Problems Medical Problem Onset Date Compression fracture of L2 Unknown Compression fx, lumbar spine Unknown Medications Current Home Medications Medication Dose Units Route Directions Days Qty Instructions Start Date Acetaminophen (Tylenol Extra Strength) 500 Mg Tablet 500 Mg Oral Every 6 Hours as needed for Pain 30 Tablet 08/27/16 Aspirin 81 Mg Tab.chew 81 Mg Oral Daily 08/23/16 Atorvastatin Calcium 20 Mg Tablet 20 Mg Oral Daily 08/23/16 Bethanechol Chloride (Urecholine) 25 Mg Tablet 25 Mg Oral Four Times Daily 02/28/16 Ca Cmb No.1/Vit D3/B-6/Fa/B12 (Vitamin D3 1,000 Unit Tablet) 1 Each Tablet 1, 000 Unit Oral Daily 06/30/13 Cyclobenzaprine Hcl 5 Mg Tablet 1-2 Tab Oral Three Times A Day as needed for Pain &/Or Spasm 20 Tablet MAY CAUSE DROWSINESS OR DIZZINESS 08/23/16 Docusate Sodium (Colace) 100 Mg Capsule 100 Mg Oral Twice A Day 30 Capsule 08/27/16 Gabapentin (Neurontin) 300 Mg Capsule 300 Mg Oral Bedtime for Pain 30 Capsule 08/27/16 Levothyroxine Sodium 25 Mcg Tablet 25 Mcg Oral Before Breakfast 06/30/13 Magnesium Hydroxide (Milk Of Magnesia) 400 Mg/5 Ml Oral.susp 30 Ml Oral Daily as needed for Constipation 1 Bottle 08/27/16 Nitroglycerin (Nitrostat) 0.4 Mg Tablet 0.4 Mg Oral Every 5 Minutes X 3 as needed for Chest Pain 08/24/16 Oxycodone/Acetaminophen (Percocet 7.5-325 Mg Tablet) 7.5-325 Tablet 1-2 Tab Oral Four Times Daily as needed for Pain 50 Tablet 09/03/16 Pantoprazole Sodium 40 Mg Tablet.dr 40 Mg Oral Before Meals Twice A Day 45 Tablet take twice daily for 2 weeks, then once daily 09/03/16 Polyethylene Glycol 3350 (Healthylax) 17 Gm Powd.pack 17 Gm Oral Daily for Constipation 1 08/27/16 Ticagrelor (Brilinta) 90 Mg Tablet 90 Mg Oral Twice A Day Past Home Medications Medication Directions Ordered Status Acetaminophen 500 Mg Tablet, 1000 Mg Oral Every 8 Hours as needed for Pain Discontinued Bisacodyl 10 Mg Supp.rect, 10 Mg Rectally Daily as needed for Constipation Discontinued Celecoxib (Celebrex) 100 Mg Capsule, 02/11/09 Discontinued Estrogens,Conjugated (Premarin) 1.25 Mg Tablet, 02/11/09 Discontinued Lidocaine (Lidoderm) 1 Each Adh..patch, 1 Patch Topically Daily 08/27/16 Discontinued Lisinopril 40 Mg Tablet, 40 Mg Oral Daily 08/09/15 Discontinued Lisinopril 10 Mg Tablet, Daily 02/11/09 Discontinued Oxycodone/Acetaminophen (Percocet 7.5-325 Mg Tablet) 7.5-325 Tablet, 1-2 Tab Oral Every 4 Hours as needed for Pain 08/27/16 Discontinued Tramadol Hcl 50 Mg Tablet, 1-2 Tab Oral Every 6 Hours as needed for Pain 01/03 Discontinued Social History Social History Problem Response Recorded Date/Time Onset Date Status Reason for Hospitalization anemia 09/03/2016 5:02pm Not Applicable Not Applicable Chewing Tobacco Status No 10/09/2013 10:33am Not Applicable Not Applicable Hx Substance Use No 08/24/2016 4:33pm Not Applicable Not Applicable Hx Alcohol Use No 08/24/2016 4:33pm Not Applicable Not Applicable Has the pt used tobacco in the last 12 months No 08/29/2016 11:46am Not Applicable Not Applicable Query Response Start Date Stop Date Smoking Status Former smoker Hospital Discharge Instructions Instructions: Care Instructions: Reason for Hospitalization: anemia I was in the hospital because (patient own words): "Can't figure out why I'm using up this blood" Discharge Diet: cardiac-low fat Discharge Activity: As tolerates and under direction of home health physical therapist Follow Up Appointments: Dr. Lund in 1-2 weeks, Follow-up with Dr. Mcduffie in 4-6 weeks for reassessment of ulcers. Follow-up with Dr. Dickens as previously scheduled. Pending Lab / Results: No Pending Lab Patient Instructions: Resume Brilinta today, continue coated aspirin as before. Home health being set up for physical therapy to help with strengthening and for home safety evaluation. Wound/Incision Care: Not applicable Durable Medical Equipment: Use a walker with ambulating Pain Management/Treatment: Percocet 7.5 one tablet 4 times daily; you can take one additional tablet 4 times daily as needed if pain is not adequately controlled. As pain control improves decreased frequency of pain pills she takes regularly or extend interval between pain medicine and wean yourself off of Percocet. Can use Tylenol in place of Percocet but should not take more than 10 tablets of Percocet + Tylenol daily Expected Signs/Symptoms: Back pain-should improve with time, discomfort will increase with movement. Notify Physician If: Dizziness, black stools, vomiting, passing out or falling During Business Hours:: Please call Dr. Lund's office at After Business Hours:: Please call [phone] and have the gate mortiser operator page the physician. Condition at time of discharge: Good Plan of Care Discharge Date 09/03/16 5:50pm Disposition 01 DISCHARGED HOME, SELF-CARE Prescriptions See Medication Section Care Plan and Goals See Discharge Instructions Section Functional Status Query Response Date Recorded Mobility Status Ambulatory w/assist September 03, 2016 5:02pm Assistive Devices Front Wheeled Walker September 03, 2016 5:02pm Activity Limitations Weakness Fatigue September 03, 2016 5:02pm Feeding Ability Independent September 03, 2016 5:02pm Toileting Ability Independent September 03, 2016 5:02pm Grooming Ability Independent September 03, 2016 5:02pm Dressing Ability Independent September 03, 2016 5:02pm Driving Ability Independent September 03, 2016 5:02pm Housework Ability Independent September 03, 2016 5:02pm Meal Preparation Ability Independent September 03, 2016 5:02pm Stair Climbing Ability Independent September 03, 2016 5:02pm Ability to complete ADL's impeded by No change September 03, 2016 5:02pm Cognitive/Perceptual Impairments Impaired vision September 03, 2016 5:02pm Visual Assistive Devices Glasses With patient September 01, 2016 12:00pm Preferred Method of Learning Reading September 01, 2016 12:00pm Allergies, Adverse Reactions, Alerts Allergen Type Severity Reaction Status Last Updated phenytoin sodium Allergy Unknown HIVES Active 08/29/16 Codeine Allergy Unknown HIVES/SKIN RASH, VOMITTING Active 08/29/16 orange (food color) Allergy Unknown Active 08/29/16 Immunizations Query Response on File Recorded Date/Time Hx Influenza Vaccination Y Jun 2016 08/29/16 11:46am Hx Pneumococcal Vaccination Y Jun 2015 08/29/16 11:46am Hx Tetanus, Diptheria, Pertussis skin intact 02/02/13 11:13am Hx Influenza Vaccination Y Jun 2016 08/29/16 11:46am Hx Tetanus Diptheria Y DOES NOT KNOW 02/02/13 11:13am Hx Tetanus, Diptheria, Pertussis skin intact 02/02/13 11:13am Influenza Vaccine Hx 06/201608/29/16 12:54pm Vital Signs Acute Vital Signs Vital Response Date/Time Temperature (Fahrenheit) 97.2 deg F (96.8 - 99.1) 09/03/2016 11:41am Temperature (Calculated Celsius) 36.61707 degrees C (36.0 - 37.3) 09/03/2016 11:41am Temperature Source Oral 09/01/2016 1:55pm Pulse Rate (adult) 77 bpm (60 - 100) 09/03/2016 11:41am Respiratory Rate 16 breaths/min (10 - 20) 09/03/2016 11:41am O2 Sat by Pulse Oximetry 92 % (90 - 100) 09/03/2016 11:41am Oxygen Delivery Method Nasal Cannula 09/01/2016 11:00pm Oxygen Delivery Method Room Air 09/03/2016 11:41am Oxygen Flow Rate 1.00 L/min 09/02/2016 7:00am Blood Pressure 122/65 mm Hg 09/03/2016 11:41am Blood Pressure Source Automatic Cuff 09/03/2016 11:41am Height (Feet) 5 feet 09/02/2016 1:36pm Height (Inches) 0.00 inches 09/02/2016 1:36pm Weight (Kilograms) 63.800 kg 09/03/2016 8:29am Body Mass Index (BMI) 27.9 08/29/2016 11:43am Results Laboratory Results Test Name Result Units Flags Reference Collection Date/Time Result Date/ Time Comments Urine Collection Type CLEANCATCH-MIDSTREAM 08/26/2016 6:21am 2015 6:32am Urine Color YELLOW YELLOW 08/26/2016 6:21am 08/26/2016 6:32am Urine Turbidity CLEAR CLEAR 08/26/2016 6:21am 08/26/2016 6:32am Urine Specific Stanley 1.025 1.015-1.025 08/26/2016 6:21am 2015 6:32am Urine pH 5.5 5.0-8.0 08/26/2016 6:21am 08/26/2016 6:32am Urine Leukocyte Esterase NEGATIVE NEGATIVE 08/26/2016 6:21am 2015 6:32am Urine Nitrite NEGATIVE NEGATIVE 08/26/2016 6:08/26/2016 6:32am Urine Protein NEGATIVE NEGATIVE 08/26/2016 6:08/26/2016 6:32am Urine Glucose (UA) NEGATIVE NEGATIVE 08/26/2016 6:08/26/2016 6: 32am Urine Ketones NEGATIVE NEGATIVE 08/26/2016 6:08/26/2016 6:32am Urine Urobilinogen 0.2 EU/DL NORMAL 08/26/2016 6:08/26/2016 6: 32am Urine Bilirubin NEGATIVE NEGATIVE 08/26/2016 6:08/26/2016 6: 32am Urine Blood NEGATIVE NEGATIVE 08/26/2016 6:08/26/2016 6:32am Urinalysis Comment MICROSCOPIC NOT IND. 08/26/2016 6:2015 6:32am Neutrophils % (Manual) 56.0 % 33-66 08/29/2016 5:08/29/2016 6: 17am Band Neutrophils % 4.0 % 0-6 08/29/2016 5:08/29/2016 6:17am Lymphocytes % (Manual) 31.0 % 23-45 08/29/2016 5:08/29/2016 6: 17am Monocytes % (Manual) 3.0 % 0-9.0 08/29/2016 5:08/29/2016 6:17am Basophils % (Manual) 1.0 % 0-2 08/29/2016 5:08/29/2016 6:17am Reactive Lymphocytes % 5.0 % H 0-0 08/29/2016 5:08/29/2016 6:17am Band Neutrophils # 0.4 T/MM3 08/29/2016 5:0408/29/2016 6:17am Absolute Neutrophils (Manual) 6.1 T/MM3 1.8-7.7 08/29/2016 5:0408/29 6:17am Lymphocytes # (Manual) 3.4 T/MM3 1-4.8 08/29/2016 5:0408/29/2016 6: 17am Monocytes # (Manual) 0.3 T/MM3 0-0.8 08/29/2016 5:0408/29/2016 6: 17am Basophils # (Manual) 0.1 T/MM3 0-0.2 08/29/2016 5:0408/29/2016 6: 17am Reactive Lymphocytes # 0.5 T/MM3 H 0-0 08/29/2016 5:0408/29/2016 6: 17am Nucleated Red Blood Cells 3 08/29/2016 5:0408/29/2016 6:17am Red Cell Morphology Comment ABNORMAL 08/29/2016 5:0408/29/2016 6 :17am Anisocytosis 1+ 08/29/2016 5:0408/29/2016 6:17am Poikilocytosis 1+ 08/29/2016 5:0408/29/2016 6:17am Hypochromasia 1+ 08/29/2016 5:0408/29/2016 6:17am Iron Level 27 UG/DL L 37-170 08/28/2016 10:18pm 08/31/2016 1:39am Ferritin 25.4 NG/ML 11-264 08/28/2016 10:18pm 08/31/2016 2:19am White Blood Count 7.1 T/MM3 4.5-11.0 09/03/2016 4:2509/03/2016 5: 53am Red Blood Count 4.05 M/MM3 4.00-5.20 09/03/2016 4:2509/03/2016 5: 53am Hemoglobin 10.8 GM/DL D L 12-16 09/03/2016 4:2509/03/2016 5:53am Hematocrit 35.0 % D L 36-46 09/03/2016 4:2509/03/2016 5:53am Mean Corpuscular Volume 86.4 UM3 80-100 09/03/2016 4:2509/03/2016 5: 53am Mean Corpuscular Hemoglobin 26.7 UUG 26-34 09/03/2016 4:252015 5:53am Mean Corpuscular Hemoglobin Concent 30.9 GM/DL L 31-37 09/03/2016 4:2509/03/2016 5:53am RDW Standard Deviation 50.9 FL H 36.9-50.2 09/03/2016 4:2509/03/2016 5:53am Platelet Count 307 T/MM3 130-400 09/03/2016 4:09/03/2016 5:53am Mean Platelet Volume 10.7 UM3 9.4-12.4 09/03/2016 4:09/03/2016 5: 53am Neutrophils (%) (Auto) 53.9 % 33-66 09/03/2016 4:09/03/2016 5: 53am Lymphocytes (%) (Auto) 31.8 % 23-45 09/03/2016 4:09/03/2016 5: 53am Monocytes (%) (Auto) 10.5 % H 0-9.0 09/03/2016 4:09/03/2016 5:53am Eosinophils (%) (Auto) 3.3 % 0-4 09/03/2016 4:09/03/2016 5:53am Basophils (%) (Auto) 0.4 % 0-2 09/03/2016 4:09/03/2016 5:53am Immature Granulocyte % (Auto) 0.1 % 0.0-0.5 09/03/2016 4:2015 5:53am Absolute Neutrophils (auto) 3.8 T/MM3 1.8-7.7 09/03/2016 4:2015 5:53am Absolute Lymphocytes (auto) 2.3 T/MM3 1-4.8 09/03/2016 4:2015 5:53am Absolute Monocytes (auto) 0.7 T/MM3 0-0.8 09/03/2016 4:09/03/2016 5:53am Absolute Eosinophils (auto) 0.2 T/MM3 0-0.5 09/03/2016 4:2015 5:53am Absolute Basophils (auto) 0.0 T/MM3 0-0.2 09/03/2016 4:09/03/2016 5:53am Absolute Immature Granulocyte (auto 0.01 T/MM3 0.00-0.03 09/03/2016 4: 09/03/2016 5:53am Prothromb Time International Ratio 1.04 0.76-1.04 09/01/2016 4:3609/01/2016 5:08am THERAPUTIC RANGE=2.00-3.00 FOR ANTI-THROMBOSIS THERAPUTIC RANGE=2.50-3.50 FOR IMPLANTED VALVE Icterus Index < 2 0-7 09/03/2016 4:2509/03/2016 5:57am Chemistry Specimen Hemolysis < 15 0-25 09/03/2016 4:2509/03/2016 5 :57am 0-25: Specimen Exhibited No Hemolysis. Turbidity < 20 0-20 09/03/2016 4:2509/03/2016 5:57am Sodium Level 143 MEQ/L 134-144 09/03/2016 4:2509/03/2016 5:57am Potassium Level 3.3 MEQ/L L 3.6-5 09/03/2016 4:2509/03/2016 5:57am Chloride Level 103 MEQ/L 98-107 09/03/2016 4:2509/03/2016 5:57am Carbon Dioxide Level 28 MEQ/L 22-30 09/03/2016 4:2509/03/2016 5: 57am Anion Gap 12 MEQ/L 5-15 09/03/2016 4:2509/03/2016 5:57am Blood Urea Nitrogen 8.0 MG/DL D 7-17 09/03/2016 4:2509/03/2016 6:01am Creatinine 0.7 MG/DL 0.7-1.2 09/03/2016 4:2509/03/2016 5:57am BUN/Creatinine Ratio 11 RATIO 6-26 09/03/2016 4:2509/03/2016 5:57am Glomerular Filtration Rate Calc 82 09/03/2016 4:2509/03/2016 5: 57am Glucose Level 120 MG/DL H 65-110 09/03/2016 4:25am 09/03/2016 5:57am Calculated Osmolality 274 MOSM/KG 261-280 09/03/2016 4:2509/03/2016 5:57am Calcium Level 8.7 MG/DL 8.4-10.2 09/03/2016 4:25am 09/03/2016 5:57am Phosphorus Level 3.6 MG/DL 2.5-4.5 09/01/2016 4:36am 09/01/2016 6:22am Total Bilirubin 0.50 MG/DL 0.20-1.30 09/02/2016 4:09/02/2016 5: 39am Alkaline Phosphatase 87 U/L 38-126 09/02/2016 4:09/02/2016 5:39am Total Protein 5.5 G/DL L 6.3-8.2 09/02/2016 4:09/02/2016 5:39am Albumin 2.8 G/DL L 3.5-5.0 09/02/2016 4:09/02/2016 5:39am Globulin 2.7 G/DL 2.4-3.6 09/02/2016 4:09/02/2016 5:39am Albumin/Globulin Ratio 1.0 RATIO L 1.1-2.2 09/02/2016 4:09/02/2016 5:39am Aspartate Amino Transf (AST/SGOT) 21 U/L 14-36 09/02/2016 4:2015 5:39am Alanine Aminotransferase (ALT/SGPT) 45 U/L 9-52 09/02/2016 4:09/02 5:39am Troponin I 0.066 ng/ml 0-0.12 08/30/2016 5:08/30/2016 5:51am Troponin values with a difference of 55% increase from orginal troponin value represent a true biological DELTA value. (%increase Calc=Orginal Troponin value, divided by subsequent Troponin value, multiplied by 100) CR-Vkz-X-Type Natriuretic Peptide 8190 PG/ML H 0-175 09/03/2016 4:09/03/2016 6:02am Rule in cut points: <50 years old=450; 50-75 years old=900; >75 years old=1800; When utilizing ProBNP rule-in cut points, adjustment for impaired renal function is typically not required. Magnesium Level 2.1 MG/DL 1.6-2.3 09/03/2016 4:09/03/2016 5:57am Stool Occult Blood POSITIVE A 08/29/2016 5:49pm 08/29/2016 5:56pm Name: ODALIS OSWALD Unit #: [id number] : 1940 Sex: F Admit Date: 08/29/16 Loc / Svc: SRG Discharge Date: DIAGNOSTIC IMAGING REPORT Report #: [id number] [facility] JAYDEN Taylor EXAM: LUMBAR SPINE 2-3 VIEWS LOCATION OF DICTATION: [facility] HISTORY: ITS.REASON: compression fx, pain COMPARISON: No prior studies available for comparison. TECHNIQUE: FINDINGS: There is an age indeterminate compression deformity involving the superior endplate of L2 vertebra with approximately 25% loss of vertebral body height. Consider MRI to further evaluate the chronicity of this fracture. There is preservation of lumbar lordosis. Posterior spinal fixation with pedicle screws at the L5-S1 level. Mild spondylosis of the lumbar spine is demonstrated. There is [id number] calcific atherosclerotic disease of the thoracic aorta. IMPRESSION: 1. Age indeterminant compression deformity involving the superior endplate of L2 vertebra. MRI could be utilized to further evaluate the chronicity of this fracture. 2. Mild spondylosis with posterior spinal fixation at the L5-S1 level. There is no evidence for significant malalignment. . Procedures Procedure Status Date Provider(s) Esophagogastroduodenoscopy (EGD) with closed biopsy Completed 09/01/16 FOSTER MCDUFFIE MD Encounters Encounter Location Arrival/Admit Date Discharge/Depart Date Attending Provider Discharged Inpatient [facility] 08/29/16 11:10am 09/03/16 5:50pm OSCAR RODRIGUEZ MD Discharged Inpatient [facility] 08/27/16 2:50pm 08/29/16 11:00am KIM LOMELI MD Discharged Inpatient [facility] 08/26/16 12:41pm 08/27/16 2:50pm MARILUZ SWAN MD Departed Emergency Room [facility] 08/23/16 7:12am 08/23/16 11: 05am KELLEY STEWART MD
--- OUTSIDE RECORDS SUMMARY | 2016-12-22 06:41 | XMS REPORT | Referral Summary ---
Author Author [facility] Organization [facility] Address Unknown Phone Unavailable Care Team Providers Care Warehouse Incentive Selector Name Role Phone Mulugeta Lund Primary Care Physician [phone] Encounter VC Date(s): 09/09/16 - 09/09/16 [facility] [address], [facility] [address] [place], [place] [address] Discharge Diagnosis: Compression fracture of L2 Discharge Diagnosis: Hypertension Discharge Disposition: 01-Home or Self Care Attending Physician: Mikal Lund MD Vital Signs Most recent to 1 oldest [Reference Range]: Blood Pressure 150/84 mmHg [90-140/60-90 mmHg] *HI* (09/09/16 3:12 PM) Problem List Condition Effective Dates Status [...] Resolved speech(Confirmed)9 Thyroid Active nodule(Confirmed) TIA (transient 2012 [...] TIMES A DAY, # 120 tabs, eRx: [facility], TAKE 1 TABLET FOUR TIMES [...] Visit Note Author: Mikal Lund MD Date: 09/09/16 Assessment/Plan 1.Compression fracture of L2 No change. Continue to use the pain meds as tolerated and then see as needed 2.Hypertension Will not restart medication but will follow in about 3months.
--- OUTSIDE RECORDS SUMMARY | 2016-12-22 06:41 | XMS REPORT | Referral Summary ---
Author Author [facility] Organization [facility] Address Unknown Phone Unavailable Care Team Providers Care Electronics Department Manager Name Role Phone Mulugeta Lund Primary Care Physician [phone] Encounter VC Date(s): 08/17/16 - 08/17/16 [facility] [address] [place] [address] JAY[place] Ferraro [id number]- Discharge Diagnosis: Urethral stenosis Discharge Disposition: 01-Home or Self Care Attending Physician: Robb Soriano MD Admitting Physician: Robb Soriano MD Referring Physician: Mikal Lund MD Vital Signs Most recent to 1 oldest [Reference Range]: Peripheral Pulse 76 bpm Rate [60-100 bpm] (08/17/16 1:22 PM) Blood Pressure 116/64 mmHg [90-140/60-90 mmHg] (08/17/16 1:22 PM) Problem List Condition Effective Dates Status Health Status Informant Abdominal 2008 Active pain(Confirmed)1 Acute Active pain(Confirmed) Hayfever(Confirmed) Active Arthritis(Confirmed) Active At risk for Active injury(Confirmed)2 At risk of pressure Active sore(Confirmed) Basal cell Resolved carcinoma(Confirmed) Bronchitis(Confirmed Active ) CVA (cerebral Active vascular accident)(Confirmed) Communication 2010 Active problem(Confirmed)3 Dehydration(Confirme 2009 Active d)4 Allergy to Active environmental factors(Confirmed) [...] 1 TABLET DAILY, # 100 tabs, eRx: [facility], TAKE 1 TABLET DAILY Start [...] No data available for this section Immunizations Vaccine Date Refusal Reason influenza virus [...] Visit Note Author: Robb Soriano MD Date: 08/17/16 Assessment/Plan We will schedule her for urethral dilationagain.
--- OUTSIDE RECORDS SUMMARY | 2016-12-22 06:41 | XMS REPORT | Referral Summary ---
Author Author [facility] Organization [facility] Address Unknown Phone Unavailable Care Team Providers Care Head Knitting Machine Fixer Name Role Phone Mulugeta Lund Primary Care Physician [phone] Encounter VC Date(s): 07/13/16 - 07/13/16 [facility] [address] [place] [address] [place] [id number]- Discharge Diagnosis: Incomplete bladder emptying Discharge Disposition: -Home or Self Care Attending Physician: Robb Soriano MD Admitting Physician: Robb Soriano MD Referring Physician: Mikal Lund MD Vital Signs Most recent to 1 oldest [Reference Range]: Peripheral Pulse 68 bpm Rate [60-100 bpm] (07/13/16 10:20 AM) Blood Pressure 112/72 mmHg [90-140/60-90 mmHg] (07/13/16 10:20 AM) Problem List Condition Effective Dates Status Health [...] Visit Note Author: Robb Soriano MD Date: 07/13/16 Assessment/Plan Incomplete bladder emptying Her symptomspoint more towards possible cystocele. She has had a history ofsome mesh repairin 2001for possible cystocele. I advised herto manuallypush the bladderoffduring urination through the vaginaand see if that helps with hersymptomsif it does then she may benefitfrom repair of cystocele. She will come backin a month to let me knowhow she is doing.
--- OUTSIDE RECORDS SUMMARY | 2016-12-22 06:41 | XMS REPORT | Referral Summary ---
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 Discharge Disposition: 01-Home or Self Care Attending Physician: Robb Soriano MD Admitting Physician: Robb Soriano MD Vital Signs Most recent to 1 oldest [Reference Range]: Peripheral Pulse 72 bpm Rate [60-100 bpm] (06/25/16 1:10 PM) Blood Pressure 134/74 mmHg [90-140/60-90 mmHg] (06/25/16 1:10 PM) Problem List Condition Effective Dates Status [...] QID, # 120 tabs, 0 Refill(s), Pharmacy: [facility]IVERY, 1 tabs Oral QID Start [...] 1 TABLET DAILY, # 100 tabs, eRx: [facility], TAKE 1 TABLET DAILY Start [...] Vaccine Date Refusal Reason influenza virus vaccine, live 06/27/13 influenza virus vaccine, live 06/08/11 pneumococcal 23-polyvalent vaccine 03/17/10 Procedures Procedure Date Related Diagnosis Body Site Dilation of female urethra including 06/25/16 suppository and/or instillation; subsequent Calibration of urethra 08/09/15 Cystoscopy 08/09/15 Urethral [...] Visit Note Author: Robb Soriano MD Date: 06/25/16 Assessment/Plan Acquired stenosis of urethral meatus Female urethral dilators were used and the ureter was dilated starting from 12 sized to 26. Patient tolerated the procedure well. Urine was clearwithout any odor. She will follow-up with me in the returnin 3 months
[2016-12-22] MEDS ORDERED: LR 1,000 ML IV SCH (07:00)
[2016-12-22] MEDS ORDERED: LIDOCAINE 1% (10mg/ml) 2ml SDV INJ ONE (07:00)
[2016-12-22 07:08] VITALS: BP 167/77; PULSE 70; RESP 20; TEMP 98.6; O2SAT 94
[2016-12-22 07:19] VITALS: BP 150/70
[2016-12-22] MEDS ORDERED: PROPOFOL 500mg 50 ML IV ONE (08:02)
[2016-12-22] MEDS ORDERED: MIDAZOLAM 2mg/2ml INJECTION ONE (08:03)
[2016-12-22] MEDS ORDERED: ONDANSETRON 4mg/2ml INJECTION ONE (08:03)
--- NOTE | 2016-12-22 08:12 | ANESPREOP ---
Anesthesia Record Date and Time DATE: 12/22/16 TIME: 714 Proposed Surgical Procedure EGD Allergies: Coded Allergies: codeine (Verified Allergy, Unknown, HIVES/SKIN RASH, VOMITTING, 12/22/16) orange (Verified Allergy, Unknown, 12/22/16) ALL ORANGES phenytoin sodium (Verified Allergy, Unknown, HIVES, 12/22/16) Ht/Wt/BMI Height: 5 ' 0.00 " Weight: 66.500 kg BMI: 28.6 kg/m2 Vital Signs Date Time Temp Pulse Resp B/P Pulse Ox O2 Delivery O2 Flow Rate FiO2 12/22/16 07:19 150/70 12/22/16 07:08 98.6 70 20 94 Room Air Medications Inpatient Medications Current Medications Medications (Trade) Dose Ordered Sig/Mindy Start Time Stop Time Status Last Admin Dose Admin Lactated Ringer's (Lactated Ringers) 1,000 ml @ 50 mls/hr Q20H 12/22/16 07:00 12/22/16 07:14 50 MLS/HR Aspirin (Aspirin) 81 Mg Tab.chew, 81 MG PO DAILY, (Reported) Last Taken: on 12/22/16 0600 Atorvastatin Calcium (Atorvastatin Calcium) 20 Mg Tablet, 20 MG PO DAILY, (Reported) Last Taken: on 12/22/16 0600 Bethanechol Chloride (Urecholine) 25 Mg Tablet, 25 MG PO QID, (Reported) Last Taken: on 12/22/16 0600 Ca Cmb No.1/Vit D3/B-6/Fa/B12 (Vitamin D3 1,000 Unit Tablet) 1 Each Tablet, 1,000 UNIT PO DAILY, (Reported) Last Taken: on 12/21/16 0600 Levothyroxine Sodium (Levothyroxine Sodium) 25 Mcg Tablet, 25 MCG PO ACB, (Reported) Last Taken: on 12/22/16 0600 Nitroglycerin (Nitrostat) 0.4 Mg Tablet, 0.4 MG PO Q5MIN PRN for CHEST PAIN, (Reported) Ondansetron HCl (Ondansetron HCl) 4 Mg Tablet, 1 TAB PO Q6H, (Reported) Last Taken: on 12/22/16 0200 Oxycodone HCl/Acetaminophen (Percocet 7.5-325 mg Tablet) 7.5-325 Tablet, 1-2 TAB PO QID PRN for PAIN Last Taken: on 12/21/16 2200 Pantoprazole Sodium (Pantoprazole Sodium) 40 Mg Tablet.dr, 40 MG PO ACBID take twice daily for 2 weeks, then once daily Last Taken: on 12/22/16 0600 Polyethylene Glycol 3350 (Healthylax) 17 Gm Powd.pack, 17 GM PO DAILY Last Taken: on Unknown Date & Time Ticagrelor (Brilinta) 90 Mg Tablet, 90 MG PO BID, (Reported) Last Taken: on 12/22/16 0600 Currently on Beta Dwight: No Medical/Surgical History Anesthesia PMH: Reports: *Angina (APRIL 14, 2016), *Hypertension (NO MEDS), *CT (March & 2015), Anesthesia Reactions (N/V, NO AIRWAY ISSUES KNOWN), Arthritis, CHF, CVA/Stroke/TIA (TIA 2010 & 2011), Hiatal Hernia (NOV 02 2014), Hyperlipidemia, Reflux, Thyroid Disease (GOITER, THROID NODULE PER H&P, PT. DENIES), Denies: *Diabetes, *Dyspnea, Asthma, Blood Transfusion Reac, COPD, Cancer, Clotting Problems, Deep Vein Thrombosis, Glaucoma, Hepatitis, Malignant Hyperthermia, Pacemaker, Renal Disease, Seizures, Sleep Apnea, Tuberculosis Smoking Status: Current every day smoker # of Packs per Day: 0.3 # of Years: 50 Use Chewing Tobacco?: No Substance Use Type: does not use Alcohol Intake: none Last Drink: hours (ago) (8) HX of Last Menstrual Period: HYST. Past Surgical History Orthopedic Surgeries: Yes - BACK FUSION , PINNNING OF LEFT RADIUS Abdominal Surgeries: Yes - appy, hernia Genitourinary Surgeries: No Cardiac Surgeries: Yes - HEART CATH. 2 STENTS PLACED Endocrine Surgeries: No Reproductive Surgeries: Yes - hyst Neurological Surgeries: Yes - MENINGIOMA 1993 Ear Surgeries: No Nose Surgeries: No Throat Surgeries: No Other Surgeries: Yes - COLONOSCOPY, EGD Anesthesia Adverse Reactions: FOUND nausea and vomiting Pertinent Findings EKG Rhythm: Sinus Rhythm Physical Exam Respiratory: Lungs clear Cardiovascular: FOUND Regular rate, rhythm Airway Assessment Mallampati Score: II TMD: 3 Fingerbreadths Neck Extension: Good Teeth: Upper Dentures Overall Assessment: No Airway Concerns ASA: 3 Plan Anesthesia Plan: TIVA Discussion Discussed risks/options/alternatives of anesthesia and questions answered. Patient consents. Nursing pain assessment noted. Present: Spouse Attestation Statement Prior to the delivery of any anesthetic medication, I examined the patient, developed the plan, obtained the patient's consent and discussed the risk and benefits of the procedure with the patient/guardian. ZOEY ALVARADO CRNA Dec 22, 2016 08:12
[2016-12-22] MEDS ORDERED: BENZOCAINE 20% Top. Anesth. SPRAY UD ONE (08:22)
[2016-12-22] MEDS ORDERED: LIDOCAINE VISCOUS 2% Oral Soln 15ml UD ONE (08:22)
[2016-12-22 08:48] VITALS: BP 165/79; PULSE 77; RESP 14; TEMP 97.7; O2SAT 93
--- NOTE | 2016-12-22 08:48 | GSPOSTPROC ---
Immediate Operative Note DATE: 12/22/16 TIME: 08:47 Postop Diagnosis: Personal history of gastric ulcers Surgical Procedure: EGD Surgeon: Yovani ASA: 3 FOSTER MCDUFFIE MD Dec 22, 2016 08:48
--- NOTE | 2016-12-22 08:56 | ANESPO ---
Post-Op Note Date 12/22/16 Time: 08:56 Status Pt Participated in Evaluation: Pt participated in person Vital Signs Date Time Temp Pulse Resp B/P Pulse Ox O2 Delivery O2 Flow Rate FiO2 12/22/16 07:19 150/70 12/22/16 07:08 98.6 70 20 94 Room Air Respiratory Function: Airway patent Cardiovascular Function: Regular pulse Mental Status: Alert/oriented Pain Level Intensity: 0 Hydration: IV infusing Complications during Recovery None apparent Follow-Up Instructions Instructions Per Surgeon ZOEY ALVARADO CRNA Dec 22, 2016 08:56
[2016-12-22 09:05] VITALS: BP 153/84; PULSE 74; RESP 20; O2SAT 92
[2016-12-22 09:20] VITALS: BP 165/79; PULSE 78; RESP 24; O2SAT 95
[2016-12-22 09:34] VITALS: BP 164/87; PULSE 72; RESP 20; O2SAT 95
--- NOTE | 2016-12-22 13:09 | OPNOTEF ---
DATE OF OPERATION 12/22/2016 PREOPERATIVE DIAGNOSES 1. Multiple benign gastric ulcers found at esophagogastroduodenoscopy on 09/01/2016. 2. Status post Collin fundoplication in 2013. POSTOPERATIVE DIAGNOSES 1. Multiple benign gastric ulcers found at esophagogastroduodenoscopy on 09/01/2016. 2. Status post Collin fundoplication in 2013. 3. Healing of previous benign gastric ulcers. OPERATION Esophagogastroduodenoscopy SURGEON Aroldo Pina MD ANESTHESIA TIVA ASA CLASS 3 FINDINGS The mucosa at the esophagus had a normal appearance. No abnormalities were seen at the esophagus. Duodenal mucosa also appeared completely normal. The previous benign gastric ulcers which had been present at esophagogastroduodenoscopy on 09/01/2016 were completely healed today. There were no gastric erosions or gastric ulcers present at esophagogastroduodenoscopy today. The patient did have postoperative changes from the previous Collin fundoplication operation which were visible at esophagogastroduodenoscopy today. DESCRIPTION OF OPERATION The patient was brought to the endoscopy room. The patient was placed on a cart in the endoscopy room. The patient was placed in left lateral recumbent position on the cart. The patient was premedicated with intravenous sedation medication administered by the nurse piecer up. The Olympus upper GI endoscope was used. The upper GI endoscope was introduced into the esophagus. The upper GI endoscope was advanced down through the esophagus and stomach and into the duodenum. The upper GI endoscope was withdrawn from the duodenum back into the stomach. The upper GI endoscope was retroflexed and the gastroesophageal junction was viewed from below. The upper GI endoscope was straightened out. Stomach was examined further. The upper GI endoscope was then withdrawn out through the stomach and esophagus and removed from the patient. Findings throughout procedure were as described above. The patient did continue to receive intravenous sedation medication administered by the nurse piecer up throughout the operation. The patient did tolerate the operation well. AMRITAD
== END 2016-12-22 09:45 | disposition home or self-care (01) ==
LOC: NSC 06:34
PROVIDERS: ATTEND Surgery
DX: Z87.11 Personal history of peptic ulcer disease (principal); Z98.890 Other specified postprocedural states; I25.10 Atherosclerotic heart disease of native coronary artery without angina pectoris; I10 Essential (primary) hypertension; I50.22 Chronic systolic (congestive) heart failure; E03.9 Hypothyroidism, unspecified; M79.7 Fibromyalgia; E78.5 Hyperlipidemia, unspecified; E04.2 Nontoxic multinodular goiter; Z79.82 Long term (current) use of aspirin; Z79.899 Other long term (current) drug therapy
CPT/HCPCS: 43235; J2250; J2405; J7120